=== PATIENT | female | born 1980 | race Caucasian/White ===

== ENCOUNTER 2018-02-19 10:31 | Outpatient (CLI) | payer BC ==
--- NOTE | 2018-02-19 12:07 | MRI ---
MRI LUMBAR SPINE WITHOUT CONTRAST: INDICATIONS: History of low back pain in a 37-year-old female. FINDINGS: There is loss of normal disk space height and signal at L3-L4 through L5-S1. There is some type I mo dic endplate degenerative change at L4-L5. The conus is seen to terminate at L1. The visualized ret roperitoneum appears within normal limits. There is an 8.6 mm T2 hyperintense, T1 hypointense lesion seen within the right mid kidney, likely reflecting a small cyst. At the L5-S1 level, there is a mild broad-based disk bulge with mild facet joint degenerative change. There is no appreciable central canal or neural foraminal narrowing. At L4-L5, there is a broad-based disk bulge with facet hypertrophy and loss of disk space height, ind ucing mild neural foraminal encroachment without impingement. At L3-L4, there is a mild broad-based bulge with facet hypertrophy. The broad-based bulge is greater on the left. There is some encroachment on the left neural foramina without definite impingement. At L2-L3, there is mild facet joint degenerative change without appreciable central canal or neural f oraminal narrowing. At L1-L2, there is no appreciable central canal or neural foraminal narrowing. At T12-L1, there is no appreciable central canal or neural foraminal narrowing. IMPRESSION: 1. Multilevel spondylosis of the lumbar spine, most prominent at L4-L5, where there is bilateral jozef ral foraminal narrowing. 2. Mild left neural foraminal narrowing at L3-L4. POS: ADRIANNA
== END 2018-02-19 10:32 | disposition home or self-care (01) ==
LOC: TBSIIMAG 10:31
PROVIDERS: ATTEND Neurological Surgery
DX: M54.5 Low back pain (principal); M47.896 Other spondylosis, lumbar region; M99.83 Other biomechanical lesions of lumbar region
CPT/HCPCS: 72148